=== PATIENT | female | born 1970 | race Caucasian/White ===

== ENCOUNTER 2019-05-29 07:17 | Day surgery (SDC) | payer BC ==
[~2019-05-29 07:17] MED LIST: Lactated Ringers 1,000 ML IV SCH; Sodium Chloride 0.9% 10 ML Syringe FLUSH PRN
[2019-05-29] MEDS ORDERED: Propofol 200 MG/20 ML SDV IV ONE (07:18)
[2019-05-29] MEDS ORDERED: Lidocaine 1% PF 2 ML SDV INJECT ONE (07:18)
[2019-05-29] MEDS ORDERED: Ketorolac 30 MG/ML SDV IVPUSH ONE (07:18)
[2019-05-29] MEDS ORDERED: Ondansetron 4 MG/2 ML SDV IVPUSH ONE (07:18)
--- NOTE | 2019-05-29 08:24 | PCM.OPNOTE ---
- General Post-Op/Procedure Note Date of Surgery/Procedure: 05/29/19 Operative Procedure(s): c scope Findings: normal exam Pre Op Diagnosis: screeing c scope Post-Op Diagnosis: nl exam Anesthesia Technique: MAC Primary Surgeon: Arslan Cortes Anesthesia Provider: Anthony Garcia Pathology: none Complications: None Condition: Good Free Text/Narrative:: see dictation
--- NOTE | 2019-05-29 08:27 | PCM.HP.2 ---
H&P History of Present Illness - General Date of Service: 05/29/19 Admit Problem/Dx: Admission Diagnosis/Problem Admission Diagnosis/Problem Colonoscopy - History of Present Illness Initial Comments - Free Text/Narative: 48 yo wf for a screening c scope. This will be the first scope. negative family history - Related Data Allergies/Adverse Reactions: Allergies Allergy/AdvReac Type Severity Reaction Status Date / Time hydrocodone Allergy Nausea and Verified 05/29/19 08:07 Vomiting Past Medical History HEENT History: Reports: None Cardiovascular History: Reports: None Respiratory History: Reports: None Gastrointestinal History: Reports: None Genitourinary History: Reports: None PANEL BEATER History: Reports: Endometriosis Neurological History: Reports: None Psychiatric History: Reports: None Endocrine/Metabolic History: Reports: None Hematologic History: Reports: None Immunologic History: Reports: None Oncologic (Cancer) History: Reports: Breast Dermatologic History: Reports: None - Past Surgical History Head Surgeries/Procedures: Reports: None HEENT Surgical History: Reports: None Cardiovascular Surgical History: Reports: None Female Surgical History: Reports: Other (See Below) Other Female Surgeries/Procedures: Breast Lumpectomy x3 Endocrine Surgical History: Reports: None Musculoskeletal Surgical History: Reports: Carpal Tunnel, Other (See Below) Other Musculoskeletal Surgeries/Procedures:: Foot Surgery Social & Family History - Tobacco Use Smoking Status *Q: Never Smoker Used Tobacco, but Quit: No - Caffeine Use Caffeine Use: Reports: Coffee - Recreational Drug Use Recreational Drug Use: No Drug Use in Last 12 Months: No H&P Review of Systems - Review of Systems: Review Of Systems: See Below General: Reports: No Symptoms HEENT: Reports: No Symptoms Pulmonary: Reports: No Symptoms Cardiovascular: Reports: No Symptoms Gastrointestinal: Reports: No Symptoms Genitourinary: Reports: No Symptoms Musculoskeletal: Reports: No Symptoms Exam - Exam Exam: See Below - Vital Signs Vital Signs: Last Vital Signs Temp 98.4 F 05/29/19 07:50 Pulse 65 05/29/19 07:50 Resp 16 05/29/19 07:50 BP 114/58 L 05/29/19 07:50 Pulse Ox 97 05/29/19 07:50 Weight: 75.931 kg - Exam General: Alert, Oriented HEENT: Other (NCAT) Lungs: Clear to Auscultation, Normal Respiratory Effort Cardiovascular: Regular Rate, Regular Rhythm GI/Abdominal Exam: Normal Bowel Sounds, Soft, Non-Tender *Q Meaningful Use (ADM) - VTE *Q VTE Pharmacological Contraindications *Q: Patient Scheduled Surgery - Problem List (1) Colon cancer screening SNOMED Code(s): 310648732, 743170761 ICD Code: Z12.11 - ENCOUNTER FOR SCREENING FOR MALIGNANT NEOPLASM OF COLON Status: Acute Current Visit: Yes Problem List Initiated/Reviewed/Updated: Yes Orders Last 24hrs: Active Orders 24 hr Category Date Time Status Patient Status [ADT] Routine ADT 05/29/19 06:45 Ordered Patient to Empty Bladder [RC] ASDIRECTED Care 05/29/19 06:45 Active Verify Patient Consent Obtain [RC] ASDIRECTED Care 05/29/19 06:45 Active Nothing Per Oral Diet [DIET] Diet 05/29/19 Breakfast Ordered HCG QUALITATIVE,URINE [URCHEM] Routine Lab 05/29/19 06:45 Ordered Lactated Ringers [Ringers, Lactated] 1,000 ml Med 05/29/19 06:45 Active IV ASDIRECTED Sodium Chloride 0.9% [Saline Flush] Med 05/29/19 06:45 Active 10 ml FLUSH ASDIRECTED PRN Peripheral IV Insertion Adult [OM.PC] Routine Oth 05/29/19 06:45 Ordered Resuscitation Status Routine Resus Stat 05/28/19 09:02 Ordered Medication Orders Lactated Ringer's (Ringers, Lactated) 1,000 mls @ 125 mls/hr IV ASDIRECTED MICHELLE Last Admin: 05/29/19 08:15 Dose: 125 mls/hr Sodium Chloride (Saline Flush) 10 ml FLUSH ASDIRECTED PRN PRN Reason: Keep Vein Open Assessment/Plan Comment:: Procedure and risks explained to the pt to include bleeding infection perforation. she expressed understanding and asks us to proceed. - Mortality Measure Prognosis:: Good
--- NOTE | 2019-05-29 09:58 | OR ---
DATE OF OPERATION: 05/29/2019 SURGEON: Arslan Cortes MD PROCEDURE PERFORMED: Colonoscopy. PREOPERATIVE DIAGNOSIS: Need for screening C-scope. POSTOPERATIVE DIAGNOSIS: Normal exam. INDICATIONS FOR PROCEDURE: This is a 49-year-old white female who presents for her initial screening colonoscopy. She has essentially no complaints. DESCRIPTION OF OPERATION: After an excellent IV sedation was administered, digital rectal exam was performed. No marked abnormality was noted. Flexible colonoscope was inserted and advanced to the cecum. Prep was excellent. The following findings were noted: Ascending colon, unremarkable. Transverse colon, unremarkable. Descending colon, unremarkable. Sigmoid and rectum, unremarkable. Colon was deflated. The scope was removed. The patient tolerated the procedure well, was taken to Recovery in good condition. Repeat scope in 10 years, sooner on a p.r.n. basis. /[id number] BERNARDINO/LAI
== END 2019-05-29 09:40 | disposition home or self-care (01) ==
LOC: FB.SDS 07:17
PROVIDERS: ATTEND Surgery
DX: Z12.11 Encounter for screening for malignant neoplasm of colon (principal); Z88.5 Allergy status to narcotic agent; Z79.899 Other long term (current) drug therapy
CPT/HCPCS: J1885; J2001; J2405; J2704; J7120